=== PATIENT | male | born 2000 | race American Indian/Alaskan Native ===

== ENCOUNTER 2022-05-30 13:05 | Emergency (ER) | payer SELFPAY ==
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
[2022-05-30 19:29] VITALS: BP 139/89
[2022-05-30] MEDS: IBUPROFEN 800 MG TAB PO ONE (19:39)
== END 2022-05-30 19:40 | disposition home or self-care (01) ==
LOC: ED 13:05
DX: M79.18 Myalgia, other site (principal); J45.909 Unspecified asthma, uncomplicated; V89.2XXA Person injured in unspecified motor-vehicle accident, traffic, initial encounter; Y93.89 Activity, other specified; Y92.89 Other specified places as the place of occurrence of the external cause; Y99.8 Other external cause status
CPT/HCPCS: 99282